=== PATIENT | male | born 1965 | race Caucasian/White ===

== ENCOUNTER 2021-06-12 00:43 | Day surgery (SDC) | payer BC, SELFPAY ==
[2021-06-02 14:16] VITALS: BMI 30.4
--- NOTE | 2021-06-09 10:45 | P.HP_ITS ---
History of Present Illness History of Present Illness Consent: Risks, benefits, and alternatives have been discussed and questions answered. Patient agrees to proceed with procedure. Chief complaint: ulcerative colitis Narrative: Wan Cedillo is a 56 year old male with chronic left-sided ulcerative colitis here for surveillance examination Review of Systems Review of Systems: All systems reviewed & are unremarkable except as noted in HPI and below [facility] Social History Social History Smoking status: Never smoker Alcohol intake: current Drinks per week: 1 Substance use: never Substance use type: does not use Living arrangements: with family Gender identity (if verbalized by the patient): Male Spiritual care concerns: No Meds Home Medications and Allergies Home Medications Medication Instructions Recorded Confirmed Type mesalamine 1.2 gram tablet,delayed 2.4 g PO DAILY #180 tablet 01/13/21 06/02/21 Rx release atorvastatin 40 mg tablet See Rx Instructions .ROUTE 06/06/21 Rx .COMPLEX #30 tablet Allergies Allergy/AdvReac Type Severity Reaction Status Date / Time No Known Allergies Allergy Verified 06/12/21 07:37 Exam Resp: Auscultation: clear to auscultation bilaterally Cardio: Rate: regular rate Rhythm: regular rhythm GI: GI Palp: Yes Soft to palpation and No Tenderness to palpation present (GI) Assessment and Plan Assessment and plan (1) Ulcerative colitis, unspecified: Qualifiers: Digestive disease complication type: without complication Ulcerative colitis location: ulcerative pancolitis Qualified Code(s): K51.00 - Ulcerative (chronic) pancolitis without complications Code(s): K51.90 - Ulcerative colitis, unspecified, without complications Status: Acute Assessment and Plan: Colonoscopy with possible biopsy or polypectomy or cautery or injection of substances.
[2021-06-12 07:38] VITALS: BP 136/83; PULSE 70; RESP 18; TEMP 36.4; O2SAT 97; BMI 28.3
[2021-06-12] MEDS: LACTATED RINGERS 1,000 ML 150 ML IV CONT (07:48)
--- NOTE | 2021-06-12 08:04 | WPDANESEPPF ---
Anes - Initial Pre Proc Eval Procedure: Operation Date: 06/12/21 08:30 Proposed Procedures p Colonoscopy - Michael Schroeder MD Date/Time: 06/12/21 08:04 Surgeon: Michael Schroeder MD Pre Op Diagnosis: ulcerative colitis Patient Data Age: 56 Gender: M Height: 1.83 m Weight: 94.7 kg Last Vital Signs Temp 97.5 F L 06/12/21 07:38 Pulse 70 06/12/21 07:38 Resp 18 06/12/21 07:38 BP 136/83 06/12/21 07:38 Pulse Ox 97 06/12/21 07:38 Allergies Allergy/AdvReac Type Severity Reaction Status Date / Time No Known Allergies Allergy Verified 06/12/21 07:37 Home Medications Medication Instructions Recorded Confirmed Type mesalamine 1.2 gram tablet,delayed 2.4 g PO DAILY #180 tablet 01/13/21 06/02/21 Rx release atorvastatin 40 mg tablet See Rx Instructions .ROUTE 06/06/21 Rx .COMPLEX #30 tablet Patient hx anesthesia problems: none Family hx anesthesia problems: none PMFSH Past Medical History Medical History (Updated 06/12/21 @ 08:00 by Saurabh Zamora MD) Other hyperlipidemia Social History Social History Smoking status: Never smoker Alcohol intake: current Drinks per week: 1 Substance use: never Substance use type: does not use Living arrangements: with family Gender identity (if verbalized by the patient): Male Spiritual care concerns: No Anes - Eval Final PreProcedure Day of Procedure 06/12/21 08:04 Patient weight: overweight Heart: regular rate and rhythm Lungs: clear to auscultation Airway: Mallampati scale class II Neurological: alert and oriented Last oral intake: >/= 8 hours ASA classification: II Emergent: no Anesthetic plan: proceed Anesthesia type and monitoring: general GIVS and standard monitoring Informed Consent: The patient's anesthetic plan and its attendant risks and benefits were discussed with the patient/family/POA. Questions were solicited and answers provided to the satisfaction of the patient/family/POA.
[2021-06-12 08:31] VITALS: BP 155/79; PULSE 72; RESP 20; O2SAT 95
[2021-06-12 08:41] VITALS: BP 114/77; PULSE 63; RESP 18; O2SAT 96
[2021-06-12 08:51] VITALS: BP 122/81; PULSE 60; RESP 18; O2SAT 96
[2021-06-12 09:01] VITALS: BP 125/85; PULSE 61; RESP 18; O2SAT 99
== END 2021-06-12 09:13 | disposition home or self-care (01) ==
PROVIDERS: PCP Internal Medicine; Visit Provider Internal Medicine Gastroenterology
PROC: 0DJD8ZZ Inspection of Lower Intestinal Tract, Via Natural or Artificial Opening Endoscopic (ICD-10-PCS; CPT 45378; principal; 2021-06-12 08:30)
DX: K51.00 Ulcerative (chronic) pancolitis without complications (principal); E78.5 Hyperlipidemia, unspecified
CPT/HCPCS: 45380; 88305; J2704; J7120

== ENCOUNTER 2022-12-11 08:03 | Outpatient (CLI) | payer OTHER, SELFPAY ==
[2022-12-11 22:34] LABS: Prostate Specific Antigen 0.7 ng/mL (< OR = 4.0)
[2022-12-12 21:40] LABS: Alanine Aminotransferase 60 U/L (6-50); Albumin Level 4.2 g/dL (3.5-5.1); Alkaline Phosphatase 121 U/L (38-126); Anion Gap 8 mmol/L (8-16); Aspartate Amino Transferase 40 U/L (17-59); Bilirubin,Total 0.9 mg/dL (0.2-1.3); Blood Urea Nitrogen 20 mg/dL (9-20); Calcium 9.5 mg/dL (8.4-10.2); Carbon Dioxide 27 mmol/L (22-30); Chloride 105 mmol/L (98-107); Cholesterol 163 mg/dL (0-200); Estimated Glomerular Filt Rate > 60; Glucose 78 mg/dL (65-110); HDL Direct 34 mg/dL; Sodium 140 mmol/L (137-145); Triglycerides 110 mg/dL (<150)
[2022-12-12 21:48] LABS: LDL Cholesterol Direct 102 mg/dL
== END 2022-12-11 08:04 | disposition home or self-care (01) ==
LOC: ANHGOSHLAB 08:05
PROVIDERS: PCP Family Medicine; Visit Provider Family Medicine
DX: Z13.220 Encounter for screening for lipoid disorders (principal); Z13.228 Encounter for screening for other metabolic disorders; Z12.5 Encounter for screening for malignant neoplasm of prostate
CPT/HCPCS: 36415; 80053; 80061; 84153; G0103

== ENCOUNTER 2023-10-07 08:02 | Outpatient (CLI) | payer OTHER, SELFPAY ==
[2023-10-07 19:15] LABS: Alanine Aminotransferase 27 U/L (6-50); Albumin Level 4.1 g/dL (3.5-5.1); Alkaline Phosphatase 93 U/L (38-126); Anion Gap 8 mmol/L (8-16); Aspartate Amino Transferase 33 U/L (17-59); Bilirubin,Total 1.1 mg/dL (0.2-1.3); Blood Urea Nitrogen 17 mg/dL (9-20); Calcium 9.4 mg/dL (8.4-10.2); Carbon Dioxide 28 mmol/L (22-30); Chloride 103 mmol/L (98-107); Cholesterol 150 mg/dL (0-200); Estimated Glomerular Filt Rate > 60; Glucose 78 mg/dL (65-110); HDL Direct 37 mg/dL; Potassium 4.4 mmol/L (3.4-5.0); Sodium 139 mmol/L (137-145); Triglycerides 84 mg/dL (<150)
[2023-10-07 19:19] LABS: Basophils Percent Auto 0.5 % (0.2-1.2); Eosinophils Absolute Auto 0.2 K/mm3 (0-0.3); Eosinophils Percent Auto 3.2 % (0-4.4); Hemoglobin 15.3 g/dL (14.0-18.0); Immature Granulocyte Absolute 0.01 K/mm3 (0.00-0.031); Immature Granulocyte Percent A 0.2 % (0-0.5); Lymphocytes Absolute Auto 1.71 K/mm3 (0.9-3.2); Lymphocytes Percent Auto 27.1 % (18.3-44.2); Mean Corpuscular HGB Conc 33.3 g/dl (32-36); Mean Corpuscular Hemoglobin 30.8 pg (26-34); Mean Corpuscular Volume 92.6 fl (80-100); Mean Platelet Volume 9.4 fl (7.4-10.4); Monocytes Absolute Auto 0.4 K/mm3 (0.1-0.6); Monocytes Percent Auto 6.8 % (2.6-8.5); Neutrophils Absolute Auto 3.9 K/mm3 (1.3-6.7); Neutrophils Percent Auto 62.2 % (45.5-73.1); Platelet Count Result 226 k/mm3 (150-375); Red Blood Count 4.97 M/mm3 (4.6-6.20); Red Cell Distribution Width 12.6 % (11.5-14.5); White Blood Count 6.3 K/mm3 (4.5-10.0)
[2023-10-07 19:27] LABS: LDL Cholesterol Direct 82 mg/dL
[2023-10-07 19:45] LABS: Prostate Specific Antigen 0.6 ng/mL (< OR = 4.0)
== END 2023-10-07 08:03 | disposition home or self-care (01) ==
LOC: ANHGOSHLAB 08:03
PROVIDERS: PCP Family Medicine; Visit Provider Family Medicine
DX: Z13.228 Encounter for screening for other metabolic disorders (principal); Z12.5 Encounter for screening for malignant neoplasm of prostate; E78.5 Hyperlipidemia, unspecified; R53.83 Other fatigue
CPT/HCPCS: 36415; 80053; 80061; 84153; 85025; G0103

== ENCOUNTER 2023-12-26 06:20 | Day surgery (SDC) | payer OTHER, SELFPAY ==
[2023-11-18 10:26] VITALS: BMI 30.2
[2023-12-04 13:11] VITALS: BMI 29.6
[2023-12-26 06:49] VITALS: BMI 29.5
--- NOTE | 2023-12-26 07:13 | PM.HPGS ---
History of Present Illness History of Present Illness Consent: Risks, benefits, and alternatives have been discussed and questions answered. Patient agrees to proceed with procedure. Chief complaint: Ulcerative Colitis unspecified w/o complications Narrative: Wan Cedillo is a 58 year old male colonoscopy. Patient known to ulcerative colitis. Patient states symptoms have been stable for many years. His Lialda 2.4g p.o. daily. He states bowel habits are normal. He denies abdominal pain. He has had no bleeding. He typically receives screening colonoscopy at 2-3 year intervals. Family history is noncontributory. Review of Systems Review of Systems: Review of systems noncontributory. [facility] Past Medical History Medical History Other hyperlipidemia Social History Social History Smoking status: Never smoker Alcohol intake: current Drinks per week: 1 Alcohol use details: 1 time monthly Substance use: never Substance use type: does not use Lack of Transportation: No Lack of Food: Never True Current Housing: I Have Housing Concerned About Future Housing: No Difficulty Paying Gas/Electric Bills: No Difficulty Paying for Meds: No Currently Unemployed: No Education: Bachelor's Degree Difficulty w/ Childcare or Family Care: No Living arrangements: with family Occupation/Education: occupation Gender identity (if verbalized by the patient): Male Spiritual care concerns: No Meds Home Medications and Allergies Home Medications Medication Instructions Recorded Confirmed Type sodium,potassium,mag sulfates 17.5 See Rx Instructions PO .COMPLEX 11/18/23 12/26/23 Rx gram-3.13 gram-1.6 gram oral soln #354 mL (Suprep Bowel Prep Kit) mesalamine 1.2 gram tablet,delayed 2.4 g PO DAILY 12/04/23 12/26/23 History release multivitamin with minerals-folic 1 tablet PO DAILY 12/04/23 12/26/23 History acid 0.4 mg tablet atorvastatin 40 mg tablet 40 mg PO DAILY #90 tabs 12/11/23 12/26/23 Rx Allergies Allergy/AdvReac Type Severity Reaction Status Date / Time No Known Allergies Allergy Verified 12/26/23 06:48 Exam Narrative: Physical exam reveals patient to be alert. Vital signs stable. HEENT exam is unremarkable patient is anicteric. Lungs are clear to auscultation and percussion is without murmur or extra sounds. Abdomen bowel sounds are present soft nontender with no organomegaly. Digital external rectal exam is normal. Assessment and Plan Assessment and plan (1) Ulcerative colitis, unspecified: Qualifiers: Ulcerative colitis location: ulcerative pancolitis Digestive disease complication type: without complication Qualified Code(s): K51.00 - Ulcerative (chronic) pancolitis without complications Code(s): K51.90 - Ulcerative colitis, unspecified, without complications Status: Acute Assessment and Plan: Patient with a history ulcerative colitis. Currently appears to be clinically stable on Lialda 2.4g p.o. daily. Plan for surveillance screening colonoscopy at several year intervals. Further recommendations may be given after endoscopy.
--- NOTE | 2023-12-26 07:28 | P.PNAN_ITS ---
Anes - Initial Pre Proc Eval Procedure: Operation Date: 12/26/23 08:00 Proposed Procedures p Colonoscopy - Natanael Lock MD Date/Time: 12/26/23 07:28 Surgeon: Natanael Lock MD Pre Op Diagnosis: Ulcerative Colitis unspecified w/o complications Patient Data Age: 58 Gender: M Height: 1.83 m Weight: 98.85 kg Allergies Allergy/AdvReac Type Severity Reaction Status Date / Time No Known Allergies Allergy Verified 12/26/23 06:48 Home Medications Medication Instructions Recorded Confirmed Type sodium,potassium,mag sulfates 17.5 See Rx Instructions PO .COMPLEX 11/18/23 12/26/23 Rx gram-3.13 gram-1.6 gram oral soln #354 mL (Suprep Bowel Prep Kit) mesalamine 1.2 gram tablet,delayed 2.4 g PO DAILY 12/04/23 12/26/23 History release multivitamin with minerals-folic 1 tablet PO DAILY 12/04/23 12/26/23 History acid 0.4 mg tablet atorvastatin 40 mg tablet 40 mg PO DAILY #90 tabs 12/11/23 12/26/23 Rx Patient hx anesthesia problems: none Family hx anesthesia problems: none Results Review: All pre-operative results and documents have been reviewed as part of the pre- operative evaluation. [facility] Past Medical History Medical History Other hyperlipidemia Social History Social History Smoking status: Never smoker Alcohol intake: current Drinks per week: 1 Alcohol use details: 1 time monthly Substance use: never Substance use type: does not use Lack of Transportation: No Lack of Food: Never True Current Housing: I Have Housing Concerned About Future Housing: No Difficulty Paying Gas/Electric Bills: No Difficulty Paying for Meds: No Currently Unemployed: No Education: Bachelor's Degree Difficulty w/ Childcare or Family Care: No Living arrangements: with family Occupation/Education: occupation Gender identity (if verbalized by the patient): Male Spiritual care concerns: No Anes - Eval Final PreProcedure Day of Procedure 12/26/23 07:28 Patient weight: overweight Heart: regular rate and rhythm Lungs: clear to auscultation Airway: Mallampati scale class II Neurological: alert and oriented Last oral intake: >/= 8 hours ASA classification: III Emergent: no Anesthetic plan: proceed Anesthesia type and monitoring: general GIVS and standard monitoring Results Review: All pre-operative results and documents have been reviewed as part of the pre- operative evaluation. Informed Consent: The patient's anesthetic plan and its attendant risks and benefits were discussed with the patient/family/POA. Questions were solicited and answers provided to the satisfaction of the patient/family/POA.
[2023-12-26 07:30] VITALS: BP 136/96; PULSE 80; RESP 16; TEMP 36.6; O2SAT 97
[2023-12-26] MEDS: LACTATED RINGERS 1,000 ML 150 ML IV CONT (07:34)
[2023-12-26 08:00] VITALS: BP 119/86; PULSE 67; RESP 16; O2SAT 97
[2023-12-26 08:10] VITALS: BP 117/76; PULSE 63; RESP 16; O2SAT 99
[2023-12-26 08:20] VITALS: BP 129/85; PULSE 70; RESP 16; O2SAT 100
--- NOTE | 2023-12-26 08:42 | WPDANESPN ---
Anes - Prog Note Post-Op Date/Time: 12/26/23 08:42 Cardiovascular status: normal Respiratory status: normal Airway patency: baseline Mental status: baseline Post-Op hydration status: normal Vital Signs: Last Vital Signs Temp 36.6 C 12/26/23 07:30 Pulse 70 12/26/23 08:20 Resp 16 12/26/23 08:20 BP 129/85 12/26/23 08:20 Pulse Ox 100 12/26/23 08:20 O2 Del Method Room Air 12/26/23 08:20 Pain Score (VAS): 0 I/O: Intake & Output 12/25/23 12/26/23 12/26/23 23:59 07:59 15:59 Intake Total 300 Balance 300 Patient Feedback: Patient satisfied with anesthetic care.
== END 2023-12-26 08:40 | disposition home or self-care (01) ==
PROVIDERS: PCP Family Medicine; Visit Provider Internal Medicine Gastroenterology
PROC: 0DJD8ZZ Inspection of Lower Intestinal Tract, Via Natural or Artificial Opening Endoscopic (ICD-10-PCS; CPT 45378; principal; 2023-12-26 08:00)
DX: K51.90 Ulcerative colitis, unspecified, without complications (principal); K64.8 Other hemorrhoids
CPT/HCPCS: 45380

== ENCOUNTER 2023-12-26 08:21 | Outpatient (NON) | payer OTHER, SELFPAY | END 2023-12-26 08:22 | disposition home or self-care (01) | PROVIDERS: PCP Family Medicine; Visit Provider Internal Medicine Gastroenterology | DX: K51.90 Ulcerative colitis, unspecified, without complications (principal) | CPT/HCPCS: 88305 ==

== ENCOUNTER 2025-05-29 06:54 | Outpatient (CLI) | payer OTHER, SELFPAY ==
[2025-05-29 08:14] LABS: Alanine Aminotransferase 33 U/L (6-50); Albumin Level 4.2 g/dL (3.5-5.1); Alkaline Phosphatase 92 U/L (38-126); Anion Gap 7 mmol/L (4-12); Aspartate Amino Transferase 32 U/L (17-59); Bilirubin,Total 1.0 mg/dL (0.2-1.3); Blood Urea Nitrogen 18 mg/dL (9-20); Calcium 9.3 mg/dL (8.4-10.2); Carbon Dioxide 25 mmol/L (22-30); Chloride 105 mmol/L (98-107); Cholesterol 155 mg/dL (0-200); Estimated Glomerular Filt Rate > 60; Glucose 108 mg/dL (65-110); HDL Direct 47 mg/dL; Potassium 4.1 mmol/L (3.4-5.0); Sodium 137 mmol/L (137-145); Total Protein 7.3 g/dL (6.3-8.2); Triglycerides 88 mg/dL (<150)
[2025-05-29 08:50] LABS: Prostate Specific Antigen 0.6 ng/mL (< OR = 4.0)
[2025-06-05 16:07] LABS: Free Testosterone (Direct) 5.6 pg/mL (6.6-18.1)
== END 2025-05-29 06:55 | disposition home or self-care (01) ==
LOC: ANHLAB 06:55
PROVIDERS: PCP Emergency Medicine; Visit Provider Emergency Medicine
DX: E55.9 Vitamin D deficiency, unspecified (principal); R97.20 Elevated prostate specific antigen [PSA]; E78.5 Hyperlipidemia, unspecified; E34.9 Endocrine disorder, unspecified
CPT/HCPCS: 36415; 80053; 80061; 82306; 84153; 84402; 84403; G0103